=== PATIENT | female | born 1990 ===

== ENCOUNTER 2017-05-19 02:29 | Emergency (ER) | payer OTHER ==
[2017-05-19 02:37] VITALS: RESP 22; TEMP 97.6
[2017-05-19] MEDS ORDERED: TDAP VACCINE 0.5 ML SUS IM ONE ×2 (02:39→02:42)
[2017-05-19] MEDS ORDERED: LIDOCAINE HCL 1% MDV SOL SC ONE (02:49)
[2017-05-19] MEDS ORDERED: LIDOCAINE HCL 1% MPF SOL ONE (02:51)
[2017-05-19] MEDS ORDERED: BACITRACIN 500 U/GM OIN TOP ONE ×2 (03:13→03:15)
[2017-05-19 04:02] VITALS: BP 132/73; PULSE 84; O2SAT 96
== END 2017-05-19 03:39 | disposition home or self-care (01) ==
LOC: ED 02:29
DX: S61.011A Laceration without foreign body of right thumb without damage to nail, initial encounter (principal); W25.XXXA Contact with sharp glass, initial encounter
CPT/HCPCS: 12002; 90471; 90715; 99284; A9270-GY; J2001

== ENCOUNTER 2019-01-04 18:23 | Emergency (ER) | payer BC, OTHER ==
[2019-01-04] MEDS ORDERED: CEFTRIAXONE 1 GM PDS IM ONE (19:15)
[2019-01-04 19:17] VITALS: BP 128/78; PULSE 107; RESP 16; TEMP 98.2; O2SAT 98
[2019-01-04] MEDS ORDERED: CEFTRIAXONE 1 GM PDS ONE (19:23)
[2019-01-04] MEDS ORDERED: LIDOCAINE HCL 1% MPF 30 SOL ONE (19:23)
== END 2019-01-04 19:40 | disposition home or self-care (01) ==
LOC: ED 18:23
DX: S41.152A Open bite of left upper arm, initial encounter (principal)
CPT/HCPCS: 96372; 99282; J0696; J2001